=== PATIENT | female | born 1945 | race Caucasian/White ===

== ENCOUNTER 2016-09-22 09:24 | Outpatient (CLI) | payer MEDICARE | END 2016-09-22 09:25 | disposition home or self-care (01) | DX: Z12.31 Encounter for screening mammogram for malignant neoplasm of breast (principal) ==

== ENCOUNTER 2016-11-15 12:58 | Outpatient (CLI) | payer MEDICARE | END 2016-11-15 12:59 | disposition home or self-care (01) | DX: Z71.3 Dietary counseling and surveillance (principal); K58.9 Irritable bowel syndrome, unspecified ==

== ENCOUNTER 2018-10-09 14:39 | Outpatient (CLI) | payer MEDICARE ==
--- NOTE | 2018-10-10 10:26 | Mammography Report ---
Reason: SCREENING MAMMO Procedure Date: 10/09/2018 Accession Number: [id number] / [id number] Procedure: AUDI - Screening Mammo w/Malick CPT Code: FULL RESULT: EXAM: Screening Mammo w/Malick DATE: 10/09/2018 3:31 PM CLINICAL HISTORY: Routine screening. No reported personal history of breast cancer. Family history breast cancer paternal grandmother in her 50s. TECHNIQUE: Bilateral CC and MLO views were obtained. COMPARISON: 09/22/2016 through 09/20/2011 FINDINGS: The breasts demonstrate scattered fibroglandular densities bilaterally. Bilateral breasts: There are no suspicious masses, calcifications or areas of distortion. IMPRESSION: Negative examination RECOMMENDATION: Routine annual screening unless otherwise clinically indicated. BI-RADS CATEGORY 1: Negative STANDARD QUALIFYING STATEMENTS: 1. This examination was not reviewed with the aid of Computer-Aided Detection (CAD). 2. A negative or benign imaging report should not preclude biopsy if clinically suspicious findings are present. 3. Dense breasts may obscure an underlying neoplasm. 4. This examination was reviewed with the aid of 3D breast imaging (tomosynthesis).
== END 2018-10-09 14:40 | disposition home or self-care (01) ==
LOC: DI 14:39
PROVIDERS: ATTEND Internal Medicine
DX: Z12.31 Encounter for screening mammogram for malignant neoplasm of breast (principal); Z80.3 Family history of malignant neoplasm of breast
CPT/HCPCS: 77063; 77067

== ENCOUNTER 2019-01-09 12:54 | Outpatient (CLI) | payer MEDICARE ==
--- NOTE | 2019-01-09 16:09 | DEXA Report ---
Reason: AGE-RELATED OSTEOPOROSIS W/O CURRENT PATHOLOGICAL Procedure Date: 01/09/2019 Accession Number: [id number] / [id number] Procedure: DEX - Dexa Spine and/or Hip CPT Code: FULL RESULT: EXAM: Dexa Spine and/or Hip DATE: 01/09/2019 1:35 PM CLINICAL HISTORY: AGE-RELATED OSTEOPOROSIS W/O CURRENT PATHOLOGICAL TECHNIQUE: Dual energy x-ray absorptiometry (DXA) was performed on a [employer] System System. Regions measured are the AP Spine, femoral neck, and if needed forearm. COMPARISON: 01/27/2016 In accordance with the International Society for Clinical Densitometry (ISCD) guidelines, data from previous exams may be reanalyzed using current recommendations and techniques. This is done to allow a more accurate basis for comparison with the current study. FINDINGS: The data for the lumbar spine is as follows: BMD (g/cm/cm) T-SCORE Z-SCORE REGION L1 0.877 -2.1 -0.2 L2 0.999 -1.7 0.3 L3 1.104 -0.8 1.1 L4 1.154 -0.4 1.6 TOTAL 1.043 -1.1 0.8 NOTE: All evaluable vertebrae are used for classification The data for the hip is as follows: BMD (g/cm/cm) T-SCORE Z-SCORE REGION Neck 0.820 -1.6 0.4 TOTAL 0.757 -2.0 -0.2 NOTE: The femoral neck or total proximal femur, whichever is lowest, is used for classification. DXA RESULTS SUMMARY: Spine SCAN DATE AGE BMD CHANGE VS CHANGE VS PREVIOUS PREVIOUS % 01[age]09/2019 [age] 1.043 -0.035* -3.2* 01/27/2016 [age] 1.078 * Denotes significant change at the 95% confidence level. Denotes dissimilar scan types or analysis methods. DXA RESULTS SUMMARY: Hip SCAN DATE AGE BMD CHANGE VS CHANGE VS PREVIOUS PREVIOUS % 01[age]09/2019 [age] 0.757 -0.027 -3.4 01/27/2016 [age] 0.784 * Denotes significant change at the 95% confidence level. Denotes dissimilar scan types or analysis methods. IMPRESSION: THE WHO CLASSIFICATION BASED ON THE INTERNATIONAL REFERENCE STANDARD IS OSTEOPENIA. THE FRACTURE RISK IS INCREASED. Compared to prior 2016 examination, there has been interval bone loss which is well within annual physiologic change (approximate 2% per year). RECOMMENDATION: Patients with diagnosis of osteoporosis or osteopenia should have regular bone mineral density assessment. For those eligible for Medicare, routine testing is allowed once every 2 years. Testing frequency can be increased for patients who have rapidly progressing disease or for those who are receiving medical therapy to restore bone mass. COMMENT: World Health Organization (WHO) definitions for osteoporosis and osteopenia: NORMAL BMD: T-score at -1.0 or higher, fracture risk is low OSTEOPENIA BMD: T-score between -1.0 and -2.5, fracture risk is increased. OSTEOPOROSIS BMD: T-score at -2.5 or lower, fracture risk is high. National Osteoporosis Foundation recommends: 1. Obtain adequate dietary calcium (at least 1200 mg per day) and vitamin D (400-800 international units per day). 2. Participate, as appropriate, in regular weightbearing and muscle-strengthening exercise. 3. Avoid tobacco use and reduce alcohol and caffeine intake. 4. For more detailed information see the website at www.NOF.org.
== END 2019-01-09 12:55 | disposition home or self-care (01) ==
LOC: DI 12:54
PROVIDERS: ATTEND Internal Medicine
DX: M85.89 Other specified disorders of bone density and structure, multiple sites (principal)
CPT/HCPCS: 77080

== ENCOUNTER 2019-02-28 | Outpatient (CLI) | payer MEDICARE | END 2019-02-28 10:54 | disposition home or self-care (01) | DX: M16.12 Unilateral primary osteoarthritis, left hip (principal) ==

== ENCOUNTER 2020-12-04 11:04 | Day surgery (SDC) | payer MEDICARE ==
[2020-12-04] MEDS ORDERED: LACTATED RINGERS 1,000 ML IV ONE ×2 (11:21→12:51)
[2020-12-04] MEDS ORDERED: fentaNYL 250 MCG/5 ML VIAL ONE (12:13)
[2020-12-04] MEDS ORDERED: MIDAZOLAM 2 MG/2 ML VIAL ONE ×2 (12:13→12:36)
[2020-12-04 13:30] VITALS: BP 117/97
== END 2020-12-04 11:05 | disposition home or self-care (01) ==
LOC: SDS 11:04
PROVIDERS: ATTEND Surgery
DX: K57.30 Diverticulosis of large intestine without perforation or abscess without bleeding (principal); K64.4 Residual hemorrhoidal skin tags; Z86.010 Personal history of colon polyps; I73.00 Raynaud's syndrome without gangrene; K21.9 Gastro-esophageal reflux disease without esophagitis; R42 Dizziness and giddiness; Z98.84 Bariatric surgery status
CPT/HCPCS: G0105; J3010; J7120

== ENCOUNTER 2021-05-06 11:39 | Outpatient (CLI) | payer MEDICARE ==
--- NOTE | 2021-05-06 12:35 | XRAY Report ---
PROCEDURE: Ribs w/PA Chest LT INDICATIONS: PLEURODYNIA TECHNIQUE: 2 views of the left ribs were acquired, along with a single view chest. COMPARISON: February 25 2013 FINDINGS: Ribs: No acute, displaced fracture, bone destruction, or expansion. Chest: No focal consolidation, pleural effusion, or pneumothorax. The cardiomediastinal silhouette is within normal limits. IMPRESSION: 1.No significant abnormality.. Reviewed by: Hunter Woodruff MD on 05/06/2021 12:34 PM PDT Approved by: Hunter Woodruff MD on 05/06/2021 12:34 PM PDT Station ID: [id number]
== END 2021-05-06 11:40 | disposition home or self-care (01) ==
LOC: DI 11:39
PROVIDERS: ATTEND Internal Medicine
DX: R07.81 Pleurodynia (principal)

== ENCOUNTER 2021-05-14 13:56 | Outpatient (CLI) | payer MEDICARE ==
--- NOTE | 2021-05-15 09:27 | Mammography Report ---
BILATERAL DIGITAL SCREENING MAMMOGRAM 3D/2D: 05/14/2021 CLINICAL: Routine screening. Comparison is made to exams dated: 10/09/2018 mammogram, 09/22/2016 mammogram, 10/09/2014 mammogram, mammogram, 09/13/2012 mammogram - [facility], and 03/03/2011 ultrasound - [facility]. The tissue of both breasts is predominantly fatty. No significant masses, calcifications, or other findings are seen in either breast. There has been no significant interval change. IMPRESSION: NEGATIVE There is no mammographic evidence of malignancy. A 1 year screening mammogram is recommended. This exam was interpreted at Station ID: [id number]. NOTE: For mammograms, a report in lay terms will be sent to the patient. Approximately 15% of breast malignancies will not be visualized mammographically. In the management of a palpable breast mass, a negative mammogram must not discourage biopsy of a clinically suspicious lesion. Electronically Signed By: Tim Knight M.D., jr/stanley:05/14/2021 15:33:55 ACR BI-RADS Category 1: Negative 3341F PARENCHYMAL PATTERN: (F) - The breast(s) demonstrate(s) diffuse fatty replacement. BI-RADS CATEGORY: (1) - 1 RECOMMENDATION: (ANNUAL) - Recommend routine annual screening mammography. [id number] 1 year screening LATERALITY: (B)
== END 2021-05-14 13:57 | disposition home or self-care (01) ==
LOC: DI 13:56
PROVIDERS: ATTEND Internal Medicine
DX: Z12.31 Encounter for screening mammogram for malignant neoplasm of breast (principal)

== ENCOUNTER 2021-08-13 15:45 | Outpatient (CLI) | payer MEDICARE ==
--- NOTE | 2021-08-13 17:26 | XRAY Report ---
PROCEDURE: Hand 3 View BILAT INDICATIONS: BILAT HAND DEFORMITY, LEFT SHOULDER PAIN TECHNIQUE: 2 views of the hand(s) acquired. COMPARISON: None FINDINGS: Bones: No fractures or dislocations. No suspicious bony lesions. Bilateral mild to moderate predom inantly DIP degenerative narrowing. It is most prominent on the left second DIP joint. Minimal scatte red periarticular osteophytes are present most severe at the second left DIP joint. Subluxation is pr esent at the joint. Minimal bilateral first CMC degenerative narrowing. Soft tissues: No suspicious soft tissue calcifications. 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 Reviewed by: Eloise Hong MD on 08/13/2021 5:24 PM [facility] Approved by: Eloise Hong MD on 08/13/2021 5:24 PM [facility] Station ID: [id number]
--- NOTE | 2021-08-13 17:30 | XRAY Report ---
PROCEDURE: Shoulder 3 View LT INDICATIONS: BILAT HAND DEFORMITY, LEFT SHOULDER PAIN TECHNIQUE: 3 views of the shoulder were acquired. COMPARISON: None. FINDINGS: Bones: No fractures or dislocations. No suspicious bony lesions. Visualized ribs appear intact. M oderate acromioclavicular degenerative narrowing. Humeral head is high riding. Mild glenohumeral narr owing. Soft tissues: No suspicious soft tissue calcifications. IMPRESSION: 1. Glenohumeral and acromioclavicular degenerative change. 2. High riding humeral head which can be seen with rotator cuff pathology. Reviewed by: Eloise Hong MD on 08/13/2021 5:29 PM PST Approved by: Eloise Hong MD on 08/13/2021 5:29 PM [facility] Station ID: [id number]
== END 2021-08-13 15:46 | disposition home or self-care (01) ==
LOC: DI 15:45
PROVIDERS: ATTEND Internal Medicine
DX: M19.012 Primary osteoarthritis, left shoulder (principal); R93.6 Abnormal findings on diagnostic imaging of limbs; S63.241A Subluxation of distal interphalangeal joint of left index finger, initial encounter; M19.042 Primary osteoarthritis, left hand; M19.041 Primary osteoarthritis, right hand

== ENCOUNTER 2022-07-09 11:43 | Outpatient (CLI) | payer MEDICARE ==
--- NOTE | 2022-07-09 16:42 | XRAY Report ---
PROCEDURE: Knee 3 View RT INDICATIONS: RIGHT KNEE PAIN TECHNIQUE: 3 views of the right knee(s) were acquired. COMPARISON: None. FINDINGS: Bones: No fractures or dislocations. No suspicious bony lesions. There is moderate medial, moderat e to severe lateral and moderate patellofemoral compartment narrowing. No erosions. Very minimal piotr articular osteophytes. Soft tissues: No joint effusion. No suspicious soft tissue calcifications. IMPRESSION: Tricompartmental arthritic change. Reviewed by: Eloise Hong MD on 07/09/2022 4:41 PM PST Approved by: Eloise Hong MD on 07/09/2022 4:41 PM PST Station ID: [id number]
== END 2022-07-09 11:44 | disposition home or self-care (01) ==
LOC: DI 11:43
PROVIDERS: ATTEND Internal Medicine
DX: M17.11 Unilateral primary osteoarthritis, right knee (principal)

== ENCOUNTER 2023-03-22 15:22 | Outpatient (CLI) | payer MEDICARE ==
--- NOTE | 2023-03-22 16:55 | DEXA Report ---
PROCEDURE: Dexa Spine and/or Hip INDICATIONS: POST MENOPAUSAL TECHNIQUE: Dual energy x-ray absorptiometry (DXA) was performed on a [employer] System. Regions measur ed are the AP Spine, femoral neck, and if needed forearm. COMPARISON: 01/09/2019, 01/19/2016 FINDINGS: Lumbar Spine: Bone Mineral Density 1.1 g/cm/cm,T score -0.6. Normal bone density Right Femoral Neck: Bone Mineral Density 0.7 g/cm/cm, T score -2.4. Osteopenia Impression: By WHO criteria, this patient has normal lumbar spine bone density and right femoral neck osteopenia. Patients with diagnosis of osteoporosis or osteopenia should have regular bone mineral density assess ment. For those eligible for Medicare, routine testing is allowed once every 2 years. Testing frequ ency can be increased for patients who have rapidly progressing disease or for those who are receivin g medical therapy to restore bone mass. Reviewed by: Zen Richter MD on 03/22/2023 4:54 PM PDT Approved by: Zen Richter MD on 03/22/2023 4:54 PM PDT Station ID: [id number]
== END 2023-03-22 15:23 | disposition home or self-care (01) ==
LOC: DI 15:22
PROVIDERS: ATTEND Physician Assistant
DX: Z78.0 Asymptomatic menopausal state (principal); M85.88 Other specified disorders of bone density and structure, other site

== ENCOUNTER 2023-09-11 23:40 | Emergency (ER) | payer MEDICARE ==
[2023-09-11 23:59] VITALS: O2SAT 98
[2023-09-12] MEDS: OXYMETAZOLINE HCL 100 SPRAYS BOTTLE NAS STA (00:16)
--- NOTE | 2023-09-12 00:52 | ED Physician Documentation ---
PD [facility] TIM - Stated complaint Stated Complaint: BLOODY NOSE - Chief complaint Chief Complaint: Heent - History obtained from History obtained from: Patient - Additional information Additional information: The patient comes to the emergency department chief complaint of bloody nose on the right side on and off for the last several weeks. She states that she will have episodes of bleeding that stopped on their own and then she does not have bleeding for some days to a week. She states the last time she had bleeding was a couple weeks ago until tonight. The patient states that she began to have bleeding out of her right nostril and that it did not seem to stop as quickly as it had previously. She decided to come here. The patient denies any trauma to her nose. She denies blowing, sneezing, or coughing, though she does frequently dab her nose to try to get clots out, and this sometimes restarts the bleeding. Right now, she states her nosebleed has stopped. The patient is not currently seeing ENT. She denies any anticoagulants. The patient notes that she was seen by her PA earlier in the week and was told to use saline spray and apply Vaseline. Patient states she never did this. PD PAST MEDICAL HISTORY - Past Medical History Past Medical History: Yes Cardiovascular: Hypertension GI: Other Other Past Medical History: IBS - Past Surgical History Past Surgical History: Yes General: Colonoscopy Ortho: Hip replacement - Present Medications Home Medications: Ambulatory Orders Medication Instructions Recorded Confirmed Dicyclomine [Bentyl] 20 mg PO DAILY 07/09/15 09/11/23 Calcium Carbonate [Calcium] 500 mg PO DAILY 07/10/15 09/11/23 Loratadine 10 mg PO DAILY 07/10/15 09/11/23 Losartan Potassium 25 mg PO DAILY 12/03/20 09/11/23 hydroCHLOROthiazide 12.5 mg PO DAILY 12/03/20 09/11/23 [Hydrochlorothiazide] Alendronate [Fosamax] 1 tab PO DAILY 09/12/23 09/12/23 - Allergies Allergies/Adverse Reactions: Allergies Allergy/AdvReac Type Severity Reaction Status Date / Time No Known Drug Allergies Allergy Verified 09/13/23 05:01 - Social History Does the pt smoke?: No Smoking Status: Never smoker Does the pt drink ETOH?: No Does the pt have substance abuse?: No - Immunizations Immunizations are current?: Yes - POLST Patient has POLST: No PD ED PE NORMAL - Vitals Vital signs reviewed: Yes - General General: Alert and oriented X 3, No acute distress, Well developed/nourished - HEENT HEENT: Atraumatic, PERRL, EOMI, Moist mucous membranes, Other (Bloody residue in right naris. No active bleeding. Small abrasion over nasal septal mucosa) - Neck Neck: Supple, no meningeal sign - Cardiac Cardiac: RRR, No murmur - Respiratory Respiratory: Clear bilaterally - Abdomen Abdomen: Normal bowel sounds, Soft, Non tender, Non distended - Derm Derm: Warm and dry - Extremities Extremities: No deformity - Neuro Neuro: Alert and oriented X 3 - Psych Psych: Normal mood, Normal affect Results - Vitals Vitals: Oxygen O2 Source Room air PD Medical Decision Making - ED course Complexity details: considered differential, d/w patient ED course: The patient's bleeding had stopped and I discussed with her that we could give her some oxymetazoline spray and let her nose alone, or we could pack it. I do not feel that this patient is likely to be compliant with leaving her nose alone if we attempt to cauterize and so I have opted not to offer this option because I feel the patient will have a high probability of repeat bleeding. The patient ultimately opted not to have packing placed. I discussed with her that she should have been following the instructions to use saline and Vaseline right away, and it may have prevented this bleed. I have advised the patient to take all of her medications as directed. We discussed the need for ENT follow-up and the usual indications for return. Departure - Departure Disposition: 01 Home, Self Care Clinical Impression: Epistaxis Condition: Stable Instructions: Nosebleed Comments: You are not currently having any bleeding from your nose. It is important that you leave your nose alone, as trying to dab and explore for any bleeding will get the bleeding going again. Furthermore, it is important to follow the instructions you were given by your PA in terms of using saline nasal spray and Vaseline. If your nasal mucous membranes are not moist, they will not be flexible and therefore will be more prone to pulling and rebleeding. You may use the oxymetazoline spray up to twice 24-hour period but no more frequently than that. As far as the saline, you may do this as often as you wish, but should keep it separate by at least an hour from the oxymetazoline. Ideally, the oxymetazoline should not be used for more than 3 days at a time to avoid reflex swelling and inflammation. You should apply the Vaseline twice a da yonce in the morning and once at night. As we discussed, take a bit of Vaseline and wipe it very gently on the inside edge of your nostril. Then gently tap the edge of your nostril with your finger to help spread it around. This will help keep your mucous membranes moist and prevent bleeding again. If you continue to have recurrent bleeding for more than the next few weeks, you will need to talk to your PA about getting referred to ENT. In the meantime, though, you should be keeping your nose moist and avoiding anything that will increase the pressure in your nasal vessels, including avoiding blowing, coughing, sneezing, or bending over with your head hanging down. You should also avoid putting anything into your nose, whether finger, Q-tip, cottonball, or Kleenex, to try to clean it. Just leave that nostril alone as much as possible. Forms: PCP List Discharge Date/Time: 09/12/23 00:55
[2023-09-12 01:20] VITALS: BP 145/70
== END 2023-09-12 00:55 | disposition home or self-care (01) ==
LOC: ED 23:40
DX: R04.0 Epistaxis (principal); I10 Essential (primary) hypertension; K58.9 Irritable bowel syndrome, unspecified
CPT/HCPCS: 99282; 99283; A9270

== ENCOUNTER 2023-09-13 04:42 | Emergency (ER) | payer MEDICARE ==
[2023-09-13 05:07] VITALS: BP 165/97; O2SAT 100
--- NOTE | 2023-09-13 05:12 | ED Physician Documentation ---
PD MC HEENT - Stated complaint Stated Complaint: NOSE BLEED - Chief complaint Chief Complaint: Heent - History obtained from History obtained from: Patient - Additional information Additional information: Patient is a 77-year-old female with a history of hypertension presenting for evaluation of epistaxis from the left nare. Patient reports that this episode started around 330 when she got up to just go to the bathroom. She denies coughing, sneezing or blowing her nose. Patient states that she has been intermittently having issues with nosebleeds out of this and they are since August 20 but has on and off had nosebleeds throughout the years. She is not on a blood thinner. She was just seen here last night for this and instructed on use of Afrin as well as saline spray and Vaseline. She states she has been using these medications as directed. She was also given a nasal clamp. She did apply the clamp and rechecked it a few times after in 15-minute intervals but the bleeding was continuing. She was concerned that she could be now bleeding from the right side. This last time she placed the clamp around 430. Review of Systems Constitutional: denies: Fever Nose: reports: Epistaxis Neurologic: denies: Headache PD PAST MEDICAL HISTORY - Past Medical History Cardiovascular: Hypertension GI: Other - Past Surgical History Past Surgical History: Yes General: Colonoscopy Ortho: Hip replacement - Present Medications Home Medications: Ambulatory Orders Medication Instructions Recorded Confirmed Dicyclomine [Bentyl] 20 mg PO DAILY 07/09/15 09/11/23 Calcium Carbonate [Calcium] 500 mg PO DAILY 07/10/15 09/11/23 Loratadine 10 mg PO DAILY 07/10/15 09/11/23 Losartan Potassium 25 mg PO DAILY 12/03/20 09/11/23 hydroCHLOROthiazide 12.5 mg PO DAILY 12/03/20 09/11/23 [Hydrochlorothiazide] Alendronate [Fosamax] 1 tab PO DAILY 09/12/23 09/12/23 - Allergies Allergies/Adverse Reactions: Allergies Allergy/AdvReac Type Severity Reaction Status Date / Time No Known Drug Allergies Allergy Verified 09/13/23 05:01 - Social History Does the pt smoke?: No Smoking Status: Never smoker Does the pt drink ETOH?: No Does the pt have substance abuse?: No - Immunizations Immunizations are current?: Yes - POLST Patient has POLST: No PD ED PE NORMAL - General General: Alert and oriented X 3, No acute distress, Well developed/nourished - HEENT HEENT: Atraumatic, Other (No signs of active bleeding from either nare, no clots, no blood in oropharynx) - Neck Neck: Supple, no meningeal sign - Cardiac Cardiac: RRR - Respiratory Respiratory: No respiratory distress - Derm Derm: Warm and dry - Neuro Neuro: Normal speech Results - Vitals Vitals: Vital Signs - 24 hr 09/13/23 04:57 Temperature 36.3 C L Heart Rate 94 Respiratory 18 Rate Blood Pressure 165/97 H O2 Saturation 100 Oxygen O2 Source Room air PD Medical Decision Making - ED course Complexity details: re-evaluated patient ED course: Patient is a 77-year-old female presenting for evaluation of left-sided epistaxis starting around 330 this morning. She was seen here last night with similar presentation. She has had on and off nosebleeds since August 20. On arrival she has a nasal clamp in place. Vital signs are stable. Blood pressure is slightly high but not in a range that would consider this to be hypertensive emergency. Clamp was removed and nares were inspected with no signs of active bleeding. Patient was observed for an hour with no bleeding visualized. Discussed continued use of her humidifier, Vaseline, saline sprays and follow-up with ENT. The patient was given new nasal clamps. Counseled on concerning symptoms to return for. 0530 - No bleeding. 0558 - No bleeding. Departure - Departure Disposition: 01 Home, Self Care Clinical Impression: Epistaxis Condition: Stable Instructions: ED Nosebleed Follow-Up: [facility] [Provider Group] (You may need a Referral from your primary care provider.) Comments: I would not recommend using a Q-tip to remove any nasal congestion as this could be causing further trauma to the tissue that appears to already be frail. I would recommend close follow-up with the ENT given the frequency of your nosebleeds. Please call your PCP today to place a referral. I have given you a new nose clamp here Which I would recommend using again if your nosebleed recurs. Although not severely high your blood pressure has been slightly elevated here (systolic 150s-160s) today. I would recommend close follow-up with your primary care provider regarding this as uncontrolled hypertension can also lead to nosebleeds. Forms: PCP List Discharge Date/Time: 09/13/23 06:05
== END 2023-09-13 06:05 | disposition home or self-care (01) ==
LOC: ED 04:42
DX: R04.0 Epistaxis (principal); I10 Essential (primary) hypertension
CPT/HCPCS: 99282; 99283

== ENCOUNTER 2023-10-13 12:54 | Outpatient (CLI) | payer MEDICARE | END 2023-10-13 12:55 | disposition home or self-care (01) | LOC: NS 12:54 | PROVIDERS: ATTEND Internal Medicine | DX: Z71.3 Dietary counseling and surveillance (principal); K58.9 Irritable bowel syndrome, unspecified; R04.0 Epistaxis | CPT/HCPCS: 97802 ==

== ENCOUNTER 2023-12-15 21:23 | Emergency (ER) | payer MEDICARE ==
[2023-12-15 21:50] VITALS: BP 166/86; O2SAT 98
[2023-12-15 21:54] LABS: BASOPHILS % (AUTO) 0.3 %; HCT - HEMATOCRIT 42.1 % (37.0-47.0); HGB - HEMOGLOBIN 13.7 g/dL (12.0-16.0); LYMPHOCYTES # (AUTO) 2.7 10^3/uL (1.5-3.5); LYMPHOCYTES % (AUTO) 41.4 %; MEAN CORPUSCULAR HEMOGLOBIN 29.6 pg (27.0-31.0); MEAN CORPUSCULAR HGB CONC 32.5 g/dL (32.0-36.0); MEAN CORPUSCULAR VOLUME 90.9 fL (81.0-99.0); MONOCYTES # (AUTO) 0.5 10^3/uL (0.0-1.0); MONOCYTES % (AUTO) 7.8 %; NEUTROPHILS # (AUTO) 3.3 10^3/uL (1.5-6.6); NEUTROPHILS % (AUTO) 50.5 %; PLT - PLATELET COUNT 225 10^3/uL (130-450); RED BLOOD COUNT 4.63 10^6/uL (4.20-5.40); WHITE BLOOD COUNT 6.4 x10^3/uL (4.8-10.8)
[2023-12-15 21:56] LABS: BILIRUBIN,URINE NEGATIVE (NEGATIVE); CLARITY,URINE CLEAR (CLEAR); GLUCOSE, URINE (UA) NEGATIVE (NEGATIVE); KETONES,URINE (UA) NEGATIVE (NEGATIVE); LEUKOCYTE ESTERASE, URINE NEGATIVE (NEGATIVE); NITRITE,URINE NEGATIVE (NEGATIVE); OCCULT BLOOD,URINE TRACE-INTA (NEGATIVE); PH,URINE 7.5 PH (5.0-7.5); PROTEIN,URINE NEGATIVE (NEGATIVE); UROBILINOGEN,URINE 0.2 (NORMAL) E.U./dL (NORMAL)
--- NOTE | 2023-12-15 22:08 | XRAY Report ---
PROCEDURE: Chest 1V INDICATIONS: Chest Pain TECHNIQUE: One view of the chest was acquired. COMPARISON: CXR 02/17/2013. FINDINGS: Surgical changes and devices: None. Lungs and pleura: No pleural effusions or pneumothorax. Lungs are clear. Mediastinum: Mediastinal contours appear normal. Heart size is normal. Bones and chest wall: No suspicious bony lesions. Overlying soft tissues appear unremarkable. IMPRESSION: No acute cardiopulmonary process. Reviewed by: Edilson Tran MD on 12/15/2023 10:07 PM PDT Approved by: Edilson Tran MD on 12/15/2023 10:07 PM PDT Station ID: [id number]
--- NOTE | 2023-12-15 22:10 | ED Physician Documentation ---
History of Present Illness - Stated complaint Stated Complaint: CHEST PX - Chief complaint Chief Complaint: Cardiac - History obtained from History obtained from: Patient - History of Present Illness Timing: How many weeks ago Pain level max: 2 Pain level now: 0 - Additonal information Additional information: Patient is a 77-year-old female who presents to the emergency department stating that for the past several weeks she has had intermittent chest tightness. She states it feels similar to prior episodes of reflux. Lasts for anywhere from 5 to 10 minutes. No change with exertion, inspiration. No cardiac history. She states she also occasionally feels her pulse "hesitate". She states it will feel like she is having normal heartbeats and then a heartbeat that "hesitates." She states she is on a blood pressure medication at home. She does not smoke or drink. No fevers, cough, congestion. No nausea or vomiting. No lightheadedness or dizziness. Currently asymptomatic. She states that she has an appointment with her doctor next week. She just felt like she should get "checked out" tonight. Review of Systems Constitutional: denies: Fever, Chills Respiratory: denies: Dyspnea, Cough, Wheezing GI: denies: Abdominal Pain, Nausea, Vomiting, Diarrhea Skin: denies: Rash Musculoskeletal: denies: Neck pain, Back pain Neurologic: denies: Headache PD PAST MEDICAL HISTORY - Past Medical History Past Medical History: Yes Cardiovascular: Hypertension Respiratory: None Neuro: None Endocrine/Autoimmune: None GI: Other [employer]: None : None HEENT: None Psych: None Musculoskeletal: None Derm: None - Past Surgical History Past Surgical History: Yes General: Colonoscopy Ortho: Hip replacement - Present Medications Home Medications: Ambulatory Orders Medication Instructions Recorded Confirmed Dicyclomine [Bentyl] 20 mg PO DAILY 07/09/15 09/11/23 Calcium Carbonate [Calcium] 500 mg PO DAILY 07/10/15 09/11/23 Loratadine 10 mg PO DAILY 07/10/15 09/11/23 Losartan Potassium 25 mg PO DAILY 12/03/20 09/11/23 hydroCHLOROthiazide 12.5 mg PO DAILY 12/03/20 09/11/23 [Hydrochlorothiazide] Alendronate [Fosamax] 1 tab PO DAILY 09/12/23 09/12/23 - Allergies Allergies/Adverse Reactions: Allergies Allergy/AdvReac Type Severity Reaction Status Date / Time No Known Drug Allergies Allergy Verified 12/15/23 21:44 - Social History Does the pt smoke?: No Smoking Status: Never smoker Does the pt drink ETOH?: No Does the pt have substance abuse?: No - Immunizations Immunizations are current?: Yes - POLST Patient has POLST: No PD ED PE NORMAL - Vitals Vital signs reviewed: Yes - General General: Alert and oriented X 3, No acute distress - HEENT HEENT: PERRL, Moist mucous membranes - Neck Neck: Supple, no meningeal sign - Cardiac Cardiac: RRR, No murmur, Strong equal pulses - Respiratory Respiratory: No respiratory distress, Clear bilaterally - Abdomen Abdomen: Soft, Non tender, Non distended - Derm Derm: Warm and dry - Extremities Extremities: No edema, No calf tenderness / cord - Neuro Neuro: Alert and oriented X 3 - Psych Psych: Normal mood, Normal affect Results - Vitals Vitals: Vital Signs - 24 hr 12/15/23 21:25 Temperature 36.9 C Heart Rate 92 Respiratory 17 Rate Blood Pressure 166/86 H O2 Saturation 98 Oxygen O2 Source Room air - EKG (time done) 2134 EKG releavant findings:: EKG personally interpreted by author of this note. Relevant findings are: Rate: Rate (enter#) (83) Rhythm: NSR [place]: Normal Intervals: Normal MA QRS: Normal Ischemia: Normal ST segments - Labs Labs: Laboratory Tests 12/15/23 12/15/23 12/15/23 21:50 21:50 21:50 WBC 6.4 RBC 4.63 Hgb 13.7 Hct 42.1 MCV 90.9 MCH 29.6 MCHC 32.5 RDW 13.0 Plt Count 225 MPV 9.0 Neut # (Auto) 3.3 Lymph # (Auto) 2.7 [place] # (Auto) 0.5 Eos # (Auto) 0.0 Baso # (Auto) 0.0 Absolute Nucleated RBC 0.00 Nucleated RBC % 0.0 Sodium 138 Potassium 3.6 Chloride 100 L Carbon Dioxide 29 Anion Gap 9.0 BUN 16 Creatinine 0.8 Estimated GFR (MDRD) 70 L Glucose 104 Calcium 10.2 Total Bilirubin 0.5 AST 31 ALT 28 Alkaline Phosphatase 105 Troponin I High Sens 2.9 Total Protein 7.6 Albumin 4.4 Globulin 3.2 Albumin/Globulin Ratio 1.4 Lipase 14 Urine Color YELLOW Urine Clarity CLEAR Urine pH 7.5 Ur Specific [place] <=1.005 Urine Protein NEGATIVE Urine Glucose (UA) NEGATIVE Urine Ketones NEGATIVE Urine Occult Blood TRACE-INTA Urine Nitrite NEGATIVE Urine Bilirubin NEGATIVE Urine Urobilinogen 0.2 (NORMAL) Ur Leukocyte Esterase NEGATIVE Ur Microscopic Review NOT INDICATED Urine Culture Comments NOT INDICATED - Rads (name of study) cxr Relevant Findings:: Final report received, See rad report PD Medical Decision Making - ED course Complexity details: reviewed results, re-evaluated patient, considered differential (No ST elevation OK, no aortic dissection, no PE, no tension pneumothorax, no aortic aneurysm), d/w patient ED course: No significant lab abnormalities. No acute findings on EKG. Telemetry does show premature atrial contractions that coincide with her symptoms of palpitations. Suspect that this is what she is feeling as the "hesitation". High sensitive troponin is negative. Symptoms ongoing for several weeks. R ecommend a heart monitor with her doctor such as a Zio patch or Holter monitor. Would also likely benefit from a cardiac stress test that she has not had one. Do not feel her symptoms are likely to be secondary to acute coronary syndrome tonight. Patient counseled regarding signs and symptoms for which I believe and urgent re-evaluation would be necessary. Patient with good understanding of and agreement to plan and is comfortable going home at this time This document was made in part using voice recognition software. While efforts are made to proofread this document, sound alike and grammatical errors may occur. Departure - Departure Disposition: 01 Home, Self Care Clinical Impression: PAC (premature atrial contraction) Condition: Good Instructions: ED Palpitations Follow-Up: Jeremias Ramos MD [Primary Care Provider] - Within 1 week Comments: Your EKG and laboratory testing not show any acute abnormalities today. You do have premature atrial contractions on telemetry today. These are not harmful, but may cause your symptoms of feeling like your heart is skipping a beat or hesistating. Forms: PCP List Discharge Date/Time: 12/15/23 22:41
[2023-12-15 22:15] LABS: TROPONIN I HIGH SENSITIVITY 2.9 ng/L (2.3-14.8)
[2023-12-15 22:33] LABS: ALBUMIN 4.4 g/dL (3.2-5.5); ALBUMIN/GLOBULIN RATIO 1.4 (1.0-2.2); BILIRUBIN,TOTAL 0.5 mg/dL (0.2-1.0); CALCIUM 10.2 mg/dL (8.5-10.3); CREATININE 0.8 mg/dL (0.6-1.3); POTASSIUM 3.6 mmol/L (3.5-4.5); TOTAL PROTEIN 7.6 g/dL (6.4-8.9)
== END 2023-12-15 22:41 | disposition home or self-care (01) ==
LOC: ED 21:23
DX: R07.89 Other chest pain (principal); I49.1 Atrial premature depolarization; I10 Essential (primary) hypertension
CPT/HCPCS: 36415; 80053; 81001; 81003; 83690; 84484; 85025; 87086; 93005; 99283; 99284

== ENCOUNTER 2024-02-09 08:42 | Outpatient (CLI) | payer MEDICARE ==
[~2024-02-09 08:42] MED LIST: NITROGLYCERIN SL 0.4 MG TABLET SL ONE
--- NOTE | 2024-02-09 08:52 | CARDIAC PROCEDURE NOTE ---
Stress Test Report Service Date: 02/09/24 Service Time: 09:00 Ordering Provider: Jeremias Ramos MD Indication for Test: Assess chest discomfort. Significant Medical History: "Rebeca" is referred for an exercise tolerance test today, to evaluate episodes of chest discomfort that she was experiencing over the course of a few weeks earlier this spring. She describes the symptoms as intermittent central chest tightness lasting 5 to 10 minutes in duration, not associated with diaphoresis, nausea or shortness of breath. She believed the discomfort was concerning for dyspepsia and started taking omeprazole on a regular basis, with a subsequent significant decrease in their occurrence. She also notes that, upon initiation of the symptoms, taking a drink of water or chewing will decrease their intensity. She was seen on one occasion at the [facility] Emergency Department for an episode of chest discomfort, where troponins were negative x 2 and EKG did not raise concerns for ischemia. She remains quite active, doing yoga 3 times a week and walking several other days of the week, with routes that include hills which she is able to do with maintained stamina. She has a history of PACs per prior ambulatory rhythm monitoring and was having some episodic "hesitation" symptoms at the time of her ED visit that correlated with PACs. She reports that these symptoms are no longer present more than very rarely. Cardiac Risk Factors: Positive for hypertension (treated for the past 3-4 yrs, with reported BP control on losartan and HCTZ, which she took this AM), and possibly for hyperlipidemia (with TChol 240, though extremely high HDLc of 123 accounts for much of the elevation, with TG 69 and calculated LDLc of 106; not treated with hypolipidemic rx); negative for diabetes, tobacco smoking and family history of ASCVD events. Type of Stress Test: Exercise Treadmill Test (ETT) Procedure: -Exercise Treadmill Test- After signing informed consent, the patient performed treadmill exercise using a D[place] protocol. The patient exercised for 6 minutes 31 seconds and achieved a peak heart rate of 152 (106 percent predicted maximum heart rate for age), and an estimated workload of 7.9 METS. The test was terminated due to fatigue/shortness of breath. Resting heart rate: 88 Peak heart rate: 152 Normal response to exercise. Resting BP: 142/79 Peak BP: 172/73 Borderline hypertensive resting systolic BP with normal response of systolic and diastolic BPs to exercise. Room air oxygen saturation during exercise ranged between 95-98%. Rhythm during exercise: Sinus rhythm throughout, with rare PACs and no PVCs observed. Symptoms: She denied experiencing any chest pressure/heaviness/discomfort nor any heart "hesitation" (her presumed palpitation equivalent). EKG at rest showed normal sinus rhythm with left atrial abnormality but normal QRS complexes and an interpretable ST/T pattern. EKG at peak stress showed no ischemia by EKG criteria. In Recovery HR and BP decreased gradually, remaining modestly elevated at 4:00 (107, 166/69 respectively). No imaging was ordered with this stress test. Summary: 1) Exercise tolerance well above average for age and sex, as evidenced by SILVIO of -23%. 2) Normal resting EKG. 3) Adequate level of exercise was achieved on this treadmill stress test. 4) Normal BP response to exercise. 5) No ischemic changes by EKG criteria were seen at peak stress. 6) No imaging was ordered with this test. Conclusions and Recommendations: 1) Entirely favorable ETT results, for prior period of symptoms that have since decreased with regular PPI use. 2) No recommendations for changes in [facility] cardiovascular care.
== END 2024-02-09 08:43 | disposition home or self-care (01) ==
LOC: DI 08:42
PROVIDERS: ATTEND Internal Medicine
DX: R07.9 Chest pain, unspecified (principal); I10 Essential (primary) hypertension
CPT/HCPCS: 93017; A9270